=== PATIENT | female | born 2000 | race Caucasian/White ===

== ENCOUNTER 2019-10-24 00:51 | Emergency (ER) | payer SELFPAY ==
--- NOTE | 2019-10-24 00:54 | ED.PDOC ---
History of Present Illness - General Time Seen by Provider: 10/24/19 00:53 Source: patient - History of Present Illness Initial Comments: 18 yo female who presents from work at [place] for cc of acute low back injury which occurred approx 1.5 hours ago at work. 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 Denies any poppin g/cracking/clicking with injury. Reports pain to middle of lower back, constant, sharp, 7/10 severity, radiates to left and right across lower back, worse with bending/twisting, better with standing, tried Tylenol [employer] without relief. Denies any weakness, numbness, urinary incontinence. Currently on her period. Allergies/Adverse Reactions: Allergies Atomoxetine [From Strattera] Allergy (Verified 10/24/19 01:11) Home Medications: Ambulatory Orders Cyclobenzaprine HCl [Flexeril] 10 mg PO Q8H PRN 30 Days #30 tab 10/24/19 Prednisone 60 mg PO DAILY 5 Days #15 tab 10/24/19 Tramadol HCl 50 mg PO Q6H PRN 7 Days #15 tab 10/24/19 Review of Systems - Review of Systems Review of Systems: 10/24/19 01:18 as per HPI All other Systems: Reviewed and Negative Past Medical History (General) - Female History Patient : No Family Medical History - Family History Mother Family History: Unknown Physical Exam - Physical Exam General Appearance: Alert, No apparent distress, Other - appears in moderate discomfort, standing at bedside holding her lower back Ears, Nose, Throat: hearing grossly normal, normal ENT inspection, normal pharynx Neck: non-tender, full range of motion, supple, normal inspection Respiratory: lungs clear, normal breath sounds, no respiratory distress, no accessory muscle use Cardiovascular/Chest: normal peripheral pulses, regular rate, rhythm, no edema, no murmur Peripheral Pulses: radial,right: 2+, radial,left: 2+ Gastrointestinal/Abdominal: non tender, soft, no organomegaly Back Exam: other - back appears normal on inspection without bruising/swelling/deformity. Pt with moderate ttp midline approx L3 level and paralumbar regions. ROM of lower back markedly limited in all directions due to pain. Strength & sensation BL LE's intact. Pt unable to lie flat for SLR testing Extremity: normal range of motion, non-tender, normal inspection, no pedal edema, no calf tenderness, normal capillary refill Neurologic: no motor/sensory deficits, alert, normal mood/affect, oriented x 3 Skin Exam: normal color, warm/dry Progress - Progress Progress: 10/24/19 01:21 Acute low back pain -suspect acute strain vs arthropathy. Consider also lumbar disc herniation vs frx unlikely vs spasm vs other -obtain XR L spine -Decadron 8 mg IM, Toradol 60 mg IM 10/24/19 02:43 -Pt's pain moderately improved, well-controlled. XR L-spine shows no acute frx's or processes. -dc home with Rx of prednisone 60 mg daily x5 days, Flexeril PRN spasms, and Tramadol PRN breakthrough pain, advised close PCP f/u, return warnings discussed Jp Coelho MD Billing #[id number] Departure - Departure Clinical Impression: Low back strain Qualifiers: Encounter type: initial encounter Qualified Code(s): S39.012A - Strain of muscle, fascia and tendon of lower back, initial encounter Time of Disposition: 02:35 Disposition: Discharge to Home or Self Care Condition: Good Departure Forms: ED Discharge - Work Release Instructions: DI for Back Strain or Sprain Diet: resume usual diet Activity: no lifting - no lifting >10 lbs for 1 week, gradual return to normal activity after that Prescriptions: Cyclobenzaprine HCl [Flexeril] 10 mg PO Q8H PRN 30 Days #30 tab PRN Reason: Muscle Spasms Prednisone 60 mg PO DAILY 5 Days #15 tab Tramadol HCl 50 mg PO Q6H PRN 7 Days #15 tab PRN Reason: Pain Home Medications: Ambulatory Orders Cyclobenzaprine HCl [Flexeril] 10 mg PO Q8H PRN 30 Days #30 tab 10/24/19 Prednisone 60 mg PO DAILY 5 Days #15 tab 10/24/19 Tramadol HCl 50 mg PO Q6H PRN 7 Days #15 tab 10/24/19 Additional Instructions: Continue taking OTC ibuprofen 600-800 mg every 6-8 hours as needed and/or Tylenol 650 mg every 6 hours as needed for pain. Take the prednisone as directed to help limit inflammation and pain as well. You may take the Flexeril (muscle relaxer) and Tramadol as directed for breakthrough pain. Do not drive or operate heavy machinery while taking these as they may make you drowsy. Slowly return to normal activity as tolerated. Follow up with your primary doctor in 5-7 days for repeat evaluation or sooner as needed.
[2019-10-24] MEDS ORDERED: DEXAMETHASONE INJ 4 MG/ML VIAL IM ONE (01:17)
[2019-10-24] MEDS ORDERED: KETOROLAC TROMETHAMINE INJ 60 MG/2 ML VIAL IM ONE (01:17)
[2019-10-24] MEDS ORDERED: traMADol HCL 50 MG (ER DISP) # 6 TABS PO ONE (02:34)
[2019-10-24] MEDS ORDERED: CYCLOBENZAPRINE TAB (ER DISP) 10 MG TAB PO ONE (02:38)
[2019-10-24 02:50] VITALS: BP 146/90; TEMP 98; O2SAT 98
--- NOTE | 2019-10-24 03:21 | RAD ---
EXAM: XR Lumbosacral Spine, 2 or 3 Views CLINICAL HISTORY: The patient is 18 years old and is Female; acute low back pain, lifting injury TECHNIQUE: Frontal and lateral views of the lumbar spine and sacrum. COMPARISON: No relevant prior studies available. FINDINGS: VERTEBRAE: Unremarkable. No acute fracture. Normal alignment. SACRUM/COCCYX: Unremarkable as visualized. No acute fracture. DISC SPACES: No acute findings. No significant narrowing. SOFT TISSUES: Unremarkable. IMPRESSION: Normal lumbar spine radiographs. Electronically signed by: Randi Aquino MD 10/24/2019 3:19 AM [facility]
== END 2019-10-24 02:52 | disposition home or self-care (01) ==
LOC: ER 00:51
DX: S39.012A Strain of muscle, fascia and tendon of lower back, initial encounter (principal); X50.0XXA Overexertion from strenuous movement or load, initial encounter; Y99.0 Civilian activity done for income or pay; Y92.69 Other specified industrial and construction area as the place of occurrence of the external cause; Z88.8 Allergy status to other drugs, medicaments and biological substances
CPT/HCPCS: 72100; 84703; J1100; J1885